=== PATIENT | female | born 1985 | race Caucasian/White ===

== ENCOUNTER 2018-09-25 06:07 | Emergency (ER) | payer BC ==
[~2018-09-25] VITALS: Ht 160 cm; Wt 54.0 kg
[2018-09-25 06:15] VITALS: BP 119/80
== END 2018-09-25 07:41 | disposition home or self-care (01) ==
LOC: ED 07:25
DX: K21.0 Gastro-esophageal reflux disease with esophagitis (principal)
CPT/HCPCS: 36415; 80053; 81003; 83690; 84703; 85025; 99283

== ENCOUNTER → 2019-08-14 | Outpatient (CLI) | payer BC | END | disposition home or self-care (01) | LOC: CFH 10:15 | PROVIDERS: ATTEND Family Medicine | DX: R92.8 Other abnormal and inconclusive findings on diagnostic imaging of breast (principal) | CPT/HCPCS: 76642 ==